=== PATIENT | male | born 1975 | race African-American/Black ===

== ENCOUNTER 2020-09-06 21:34 | Emergency (ER) | payer OTHER ==
[~2020-09-06 21:34] MED LIST: PREDNISONE20 MG PO; PROTONIX40 MG PO; VENTOLIN HFA 66.7 GM INH; ZYRTEC10 MG PO
[2020-09-06 22:38] LABS: HEMOGLOBIN 14.5 gm/dl (14.0-17.5); RED BLOOD COUNT 4.51 M/UL (4.20-5.50); WHITE BLOOD COUNT 7.1 K/UL (4.5-11.0)
[2020-09-06 22:56] LABS: BUN/CREATININE RATIO 10 (0-10)
[2020-09-06] MEDS ORDERED: BENTYL 20MG TAB20 MG PO (23:42)
[2020-09-06] MEDS ORDERED: ZOFRAN4 MG PO (23:42)
== END 2020-09-06 23:50 | disposition home or self-care (01) ==
LOC: ER1 21:34
PROVIDERS: Physician Assistant
DX: R10.11 Right upper quadrant pain (principal); R11.2 Nausea with vomiting, unspecified; F17.200 Nicotine dependence, unspecified, uncomplicated
CPT/HCPCS: 80053; 81001; 83690; 85025; 96374; 96375; 99284; J2270; J2405; J7030; Q9967